=== PATIENT | male | born 1955 | race Caucasian/White ===

== ENCOUNTER → 2016-10-07 | Outpatient (CLI) | payer OTHER ==
[~2016-10-07] MED LIST: ATV1HP PO; IBUP-1050 PO; LPT40 PO; RBX750 PO; RMRS/45 PO; TPRSR/50 PO; [UNRECOGNIZED DRUG - CODE] PO
[2016-10-07 13:14] LABS: BLOOD UREA NITROGEN 13 mg/dl (7-18); BUN/CREATININE RATIO 14.9 (10-20); CALCIUM 8.8 mg/dl (8.5-10.1); CARBON DIOXIDE 26 mmol/L (21-32); CHLORIDE 105 mmol/L (98-107); CHOLESTEROL 133 mg/dl (0-200); CREATININE 0.84 mg/dl (0.60-1.40); GLUCOSE 100 mg/dl (70-99); POTASSIUM 4.1 mmol/L (3.5-5.1); SODIUM 136 mmol/L (136-145); TRIGLYCERIDES 83 mg/dl (0-150); VERY LOW DENSITY LIPOPROT CALC 17 mg/dl
[2016-10-07 13:19] LABS: CHOLESTEROL/HDL RATIO 3.8; HDL CHOLESTEROL 35 mg/dl; LDL CHOLESTEROL CALCULATED 81 mg/dl
[2016-10-07 13:39] LABS: ESTIMATED AVERAGE GLUCOSE 117 mg/dl; HA1C FLAG Normal (Normal)
== END | disposition home or self-care (01) ==
LOC: C.LABPVFM 10:34
PROVIDERS: ATTEND Nurse Practitioner
DX: R73.01 Impaired fasting glucose (principal); E78.5 Hyperlipidemia, unspecified; I10 Essential (primary) hypertension

== ENCOUNTER → 2017-03-24 | Outpatient (CLI) | payer OTHER ==
--- NOTE | 2017-03-24 09:44 | DIAGNOSTIC IMAGING REPORT ---
LEFT FOOT 3 VIEWS HISTORY: Left foot pain. INJURY OF FOOT, LEFT COMPARISON: None. FINDINGS: There is no fracture or dislocation. Soft tissues are unremarkable. 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 The Lisfranc joint is intact. IMPRESSION: No fractures. Electronically signed by: Layo Shah M.D. 03/24/2017 9:43 AM Dictated Date/Time: 03/24/2017 9:40 AM
== END | disposition home or self-care (01) ==
LOC: C.RADPV 09:26
PROVIDERS: ATTEND Family Medicine
DX: S99.922A Unspecified injury of left foot, initial encounter (principal); X58.XXXA Exposure to other specified factors, initial encounter

== ENCOUNTER → 2017-04-13 | Outpatient (CLI) | payer OTHER ==
[2017-04-13 17:34] LABS: BLOOD UREA NITROGEN 14 mg/dl (7-18); CALCIUM 9.1 mg/dl (8.5-10.1); CARBON DIOXIDE 26 mmol/L (21-32); CREATININE 0.95 mg/dl (0.60-1.40); GLUCOSE 98 mg/dl (70-99); SODIUM 134 mmol/L (136-145)
[2017-04-14 06:16] LABS: HEMOGLOBIN A1C 5.5 % (4.5-5.6)
== END | disposition home or self-care (01) ==
LOC: C.LABPVFM 10:01
PROVIDERS: ATTEND Nurse Practitioner
DX: I10 Essential (primary) hypertension (principal); R73.01 Impaired fasting glucose